=== PATIENT | female | born 1950 | race African-American/Black ===

== ENCOUNTER 2016-10-12 20:03 | Inpatient (IN) | payer OTHER ==
[~2016-10-12] VITALS: Ht 152.4 cm; Wt 84.4 kg
--- NOTE | ~2016-10-12 | EKG ---
[address] [place] [address] ELECTROCARDIOGRAM REPORT Name: CORINERIKA Room #: 446-P ADM IN M.R.#: [id number] Admission: 10/12/16 Attend Phys: Carlos Alberto Ceja DO Discharge: Date of : 54 Report #: [id number] THIS REPORT FOR: //name// [facility] ED Test Date: 2016-10-12 Test Time: 20:19:16 Pat Name: ERIKA COOMBS Department: Room: [facility] Gender: F Farm Crew Member: JOI : 1950 Requested By: Daphne aGrcia Order Number: [id number] MD: Aron Stanley Measurements Intervals [place] Rate: 135 P: 24 [place]: 114 QRS: 24 QRSD: 129 T: -21 QT: 341 QTc: 512 Interpretive Statements Sinus tachycardia Right bundle branch block No previous ECG available for comparison Electronically Signed On 10-13-2016 8:32:05 CDT by Aron Stanley [email or web address] <ELECTRONICALLY SIGNED> By: Aron Stanley MD, [facility] 10/13/16 0832 18 18 Aron Stanley MD, FACC /EPI
[~2016-10-12 20:03] MED LIST: CRUTCHES MISCELL; IBUPROFEN 600600 M1 PO; NORCO 5-325 TA1 EACH PO; VALIUM2 MG PO
[2016-10-12 20:04] VITALS: BP 188/81
[2016-10-12] MEDS ORDERED: BAYER CHEWABLE81 MG PO (20:15)
[2016-10-12] MEDS ORDERED: METFORMIN HCL500 MG PO (20:16)
[2016-10-12] MEDS ORDERED: APAP500 PO (20:16)
[2016-10-12] MEDS ORDERED: CHLORTHALIDONE25 MG PO (20:16)
[2016-10-12] MEDS ORDERED: LIPITOR40 MG PO (20:17)
[2016-10-12] MEDS ORDERED: LOSARTAN POTAS100 MG PO (20:17)
[2016-10-12] MEDS ORDERED: AMLODIPINE BESY10 MG PO (20:17)
[2016-10-12] MEDS ORDERED: AMARYL4 MG PO (20:17)
[2016-10-12] MEDS ORDERED: COMBIGAN EYE DR10 ML OP (20:18)
[2016-10-12] MEDS ORDERED: TRAVATAN Z2.5 ML OPHTHALMIC (20:18)
[2016-10-12 20:50] LABS: HEMATOCRIT 39.4 % (37.0-47.0); HEMOGLOBIN 13.3 gm/dL (12.0-15.0); MCHC 33.7 g/dL (28.0-37.0); MCV 80.3 fL (80.0-100.0); PLATELET COUNT 203 thou/uL (150-400); RBC 4.91 mil/uL (4.20-5.00); RDW 13.9 % (10.5-14.5); WBC 10.6 thou/uL (4.0-11.0)
[2016-10-12 20:54] LABS: MANUAL DIFF YES
[2016-10-12 21:00] LABS: ALBUMIN 3.6 g/dL (3.4-5.0); CALCIUM 9.2 mg/dL (8.5-10.1); CREATININE 0.7 mg/dL (0.6-1.3); DIRECT BILIRUBIN 0.2 mg/dL (<0.1-0.3); POTASSIUM 3.6 mmol/L (3.5-5.1); TOTAL BILIRUBIN 0.6 mg/dL (<0.1-1.0); TOTAL PROTEIN 7.7 g/dL (6.4-8.2)
[2016-10-12 21:13] LABS: ABSOLUTE NEUTROPHILS 9.5 thou/uL (1.4-8.2); TOTAL CELL COUNT 100
[2016-10-12 21:55] LABS: URINE BILIRUBIN NEGATIVE (Negative); URINE BLOOD TRACE (Negative); URINE COLOR YELLOW; URINE GLUCOSE-RANDOM* NEGATIVE (Negative); URINE KETONES 2+ (Negative); URINE NITRITE NEGATIVE (Negative); URINE PROTEIN (DIPSTICK) TRACE (Negative); URINE SPECIFIC GRAVITY 1.025 (1.003-1.035); URINE UROBILINOGEN 0.2 E.U./dl (0.2-1.0)
[2016-10-12 23:01] VITALS: BP 139/65
[2016-10-12 23:23] VITALS: BP 153/66
[2016-10-13 05:12] VITALS: BP 169/75
[2016-10-13 05:40] LABS: HEMOGLOBIN 12.2 gm/dL (12.0-15.0); LYMPHOCYTES 12.1 % (24.0-44.0)
[2016-10-13 05:42] LABS: ABSOLUTE NEUTROPHILS 6.9 thou/uL (1.4-8.2); BASOPHILS 0.3 % (0.0-2.0); EOSINOPHILS 0.1 % (0.0-3.0); HEMATOCRIT 36.8 % (37.0-47.0); MCH 26.7 pg (26.0-34.0); MCV 80.7 fL (80.0-100.0); MONOCYTES 9.9 % (1.0-8.0); POLYS 77.6 % (36.0-66.0); RBC 4.56 mil/uL (4.20-5.00); RDW 13.9 % (10.5-14.5); WBC 9.6 thou/uL (4.0-11.0)
[2016-10-13 05:59] LABS: CALCIUM 8.1 mg/dL (8.5-10.1); CREATININE 0.6 mg/dL (0.6-1.3); MAGNESIUM 1.6 mg/dL (1.8-2.4); POTASSIUM 3.5 mmol/L (3.5-5.1); TOTAL BILIRUBIN 0.5 mg/dL (<0.1-1.0); TOTAL PROTEIN 6.4 g/dL (6.4-8.2)
[2016-10-13 06:00] LABS: MANUAL DIFF NO
[2016-10-13 06:19] LABS: PLATELET COUNT 159 thou/uL (150-400); POLYCHROMASIA OCCASIONAL
[2016-10-13 08:00] VITALS: BP 160/86
[2016-10-13 11:26] VITALS: BP 153/72
[2016-10-13 15:35] VITALS: BP 135/71
[2016-10-13 19:29] VITALS: BP 155/79
[2016-10-13 23:00] VITALS: BP 144/71
[2016-10-14 03:00] VITALS: BP 151/66
[2016-10-14 05:19] LABS: HEMATOCRIT 36.5 % (37.0-47.0); HEMOGLOBIN 11.9 gm/dL (12.0-15.0); MCH 26.6 pg (26.0-34.0); MCHC 32.6 g/dL (28.0-37.0); MCV 81.4 fL (80.0-100.0); PLATELET COUNT 156 thou/uL (150-400); RBC 4.48 mil/uL (4.20-5.00); RDW 14.2 % (10.5-14.5); WBC 4.6 thou/uL (4.0-11.0)
[2016-10-14 05:20] LABS: MANUAL DIFF YES
[2016-10-14 05:27] LABS: CALCIUM 8.5 mg/dL (8.5-10.1); CREATININE 0.7 mg/dL (0.6-1.3); POTASSIUM 3.4 mmol/L (3.5-5.1)
[2016-10-14 05:50] LABS: ABSOLUTE NEUTROPHILS 3.1 thou/uL (1.4-8.2); TOTAL CELL COUNT 100
[2016-10-14 05:51] LABS: ANISOCYTOSIS 1+; POLYCHROMASIA OCCASIONAL
[2016-10-14 13:25] VITALS: BP 129/58
[2016-10-14 17:25] VITALS: BP 135/65
[2016-10-14 20:57] VITALS: BP 143/67
[2016-10-15 03:36] VITALS: BP 141/68
[2016-10-15 04:52] LABS: HEMATOCRIT 35.5 % (37.0-47.0); HEMOGLOBIN 11.8 gm/dL (12.0-15.0); MCH 26.8 pg (26.0-34.0); MCHC 33.1 g/dL (28.0-37.0); MCV 80.9 fL (80.0-100.0); RBC 4.39 mil/uL (4.20-5.00); RDW 13.8 % (10.5-14.5); WBC 4.3 thou/uL (4.0-11.0)
[2016-10-15 05:10] LABS: ALBUMIN 2.9 g/dL (3.4-5.0); CALCIUM 8.9 mg/dL (8.5-10.1); CREATININE 0.7 mg/dL (0.6-1.3); MAGNESIUM 1.5 mg/dL (1.8-2.4); POTASSIUM 3.6 mmol/L (3.5-5.1); TOTAL BILIRUBIN 0.4 mg/dL (<0.1-1.0)
[2016-10-15 08:00] VITALS: BP 126/102
[2016-10-15 08:15] VITALS: BP 125/55
[2016-10-15 12:00] VITALS: BP 124/69
[2016-10-15 16:00] VITALS: BP 126/73
[2016-10-15 20:33] VITALS: BP 137/68
[2016-10-16 05:02] VITALS: BP 162/68
[2016-10-16 07:40] VITALS: BP 145/66
[2016-10-16] MEDS ORDERED: OSELB75 PO (09:18)
[2016-10-16 10:47] VITALS: BP 145/66
[2016-10-16 11:25] VITALS: BP 145/66
== END 2016-10-16 11:33 | disposition home or self-care (01) | DRG 153 ==
LOC: ER 20:03 → EROBS 22:17 → 4S 22:17
PROVIDERS: Emergency Medicine; Family Medicine; Nurse Practitioner; Nurse Practitioner Family
DX: J11.1 Influenza due to unidentified influenza virus with other respiratory manifestations (principal); E44.1 Mild protein-calorie malnutrition; E11.9 Type 2 diabetes mellitus without complications; I10 Essential (primary) hypertension; M54.30 Sciatica, unspecified side; R00.0 Tachycardia, unspecified; E78.5 Hyperlipidemia, unspecified; M19.90 Unspecified osteoarthritis, unspecified site; E87.6 Hypokalemia; H40.9 Unspecified glaucoma; Z87.81 Personal history of (healed) traumatic fracture; Z90.49 Acquired absence of other specified parts of digestive tract; Z91.81 History of falling; Z88.6 Allergy status to analgesic agent; Z68.21 Body mass index [BMI] 21.0-21.9, adult
CPT/HCPCS: 10100

== ENCOUNTER 2020-06-23 18:22 | Emergency (ER) | payer OTHER ==
[~2020-06-23] VITALS: Ht 160 cm; Wt 81.7 kg
--- NOTE | ~2020-06-23 | EKG ---
[facility] [place] [address] ELECTROCARDIOGRAM REPORT Name: ERIKA COOMBS Room #: PRE M.R.#: [id number] Admission: Attend Phys: Discharge: Date of : 54 Report #: [id number] THIS REPORT FOR: cc: Shania Corley MD, Stephanie M. MD Epiphany, Epiphany MD ~ THIS REPORT FOR: //name// [facility] ED Test Date: 2020-06-23 Test Time: 20:30:16 Pat Name: ERIKA COOMBS Department: Room: Gender: F Front Desk Monitor: adolfo : 1950 Requested By: Humphrey Graves Order Number: [id number] MD: Measurements Intervals [place] Rate: 84 P: 37 [place]: 150 QRS: 6 QRSD: 140 T: -2 QT: 413 QTc: 489 Interpretive Statements Sinus rhythm Probable left atrial enlargement Right bundle branch block Left ventricular hypertrophy Lateral infarct, acute Compared to ECG 10/12/2016 20:19:16 Left ventricular hypertrophy now present Myocardial infarct finding now present Sinus tachycardia no longer present [email or web address] By: 29 [facility] Epiphany Epiphany, /EPI
[~2020-06-23 18:22] MED LIST changes: +AMARYL4 MG PO; +AMLODIPINE BESY10 MG PO; +APAP500 PO; +BAYER CHEWABLE81 MG PO; +CHLORTHALIDONE25 MG PO; +COMBIGAN EYE DR10 ML OP; +LIPITOR40 MG PO; +LOSARTAN POTAS100 MG PO; +METFORMIN HCL500 MG PO; +OSELB75 PO; +TRAVATAN Z2.5 ML OPHTHALMIC
[2020-06-23 19:11] LABS: URINE BILIRUBIN NEGATIVE (Negative); URINE BLOOD NEGATIVE (Negative); URINE CLARITY CLEAR; URINE COLOR YELLOW; URINE GLUCOSE-RANDOM* 3+ (Negative); URINE KETONES NEGATIVE (Negative); URINE LEUKOCYTES-REFLEX NEGATIVE (Negative); URINE NITRITE-REFLEX NEGATIVE (Negative); URINE PROTEIN (DIPSTICK) NEGATIVE (Negative); URINE SPECIFIC GRAVITY 1.015 (1.005-1.035)
[2020-06-23 21:07] LABS: HEMOGLOBIN 13.5 gm/dL (12.0-15.0); RBC 5.04 mil/uL (4.20-5.00); WBC 11.1 thou/uL (4.0-11.0)
[2020-06-23 21:09] LABS: ABSOLUTE NEUTROPHILS 4.7 thou/uL (1.4-8.2); BASOPHILS 0.6 % (0.0-2.0); EOSINOPHILS 1.4 % (0.0-3.0); HEMATOCRIT 40.8 % (37.0-47.0); LYMPHOCYTES 30.2 % (24.0-44.0); MCH 26.7 pg (26.0-34.0); MONOCYTES 5.8 % (1.0-8.0); PLATELET COUNT 164 thou/uL (150-400); RDW 13.4 % (10.5-14.5)
[2020-06-23 21:36] LABS: CALCIUM 9.7 mg/dL (8.5-10.1); CREATININE 0.8 mg/dL (0.6-1.0); POTASSIUM 5.2 mmol/L (3.5-5.1)
[2020-06-23 21:43] LABS: ALBUMIN 3.8 g/dL (3.4-5.0); TOTAL BILIRUBIN 0.8 mg/dL (0.2-1.0); TOTAL PROTEIN 7.7 g/dL (6.4-8.2)
[2020-06-23 22:05] LABS: BE(vivo) 5.8 mmol/L (-2 to +3); HCO3 32.8 mmol/L (22.0-26.0); PCO2 VENOUS 57.5 mmHg (41.0-51.0); PO2 VENOUS 39.8 mmHg (35.0-45.0)
[2020-06-23] MEDS ORDERED: ROSUVASTATIN CA40 MG PO (22:14)
[2020-06-23 22:15] VITALS: BP 135/49
[2020-06-23] MEDS ORDERED: ONDANSETRON ODT8 MG PO (23:03)
== END 2020-06-23 23:50 | disposition home or self-care (01) ==
LOC: ER 18:22
PROVIDERS: Emergency Medicine
DX: E11.65 Type 2 diabetes mellitus with hyperglycemia (principal); E86.0 Dehydration; R11.2 Nausea with vomiting, unspecified; R42 Dizziness and giddiness; R30.0 Dysuria; I10 Essential (primary) hypertension; M19.90 Unspecified osteoarthritis, unspecified site; Z90.49 Acquired absence of other specified parts of digestive tract; Z79.899 Other long term (current) drug therapy; Z79.82 Long term (current) use of aspirin; Z88.8 Allergy status to other drugs, medicaments and biological substances